=== PATIENT | female | born 1935 | race Caucasian/White ===

== ENCOUNTER 2016-09-03 00:16 | Emergency (ER) | payer MEDICARE ==
[~2016-09-03] VITALS: Ht 162.6 cm; Wt 50.9 kg
--- NOTE | 2016-09-03 00:22 | ED.REPORT ---
HPI-Head Prob / Injury Date of Service Sep 03, 2016 ED Provider: Zi Coreas MD Margarette tis a 80 year old female who presents to the ED via EMS with blunt head trauma after a mechanical ground level fall this evening. Patient states that she tripped on the carpet and fell, hitting her head on the corner of the bedroom dresser. She has a large laceration to her forehead, which was bleeding uncontrollably prior to arrival. Patient admits that she drinks white wine daily, with 2x glasses of wine earlier today. She states that she was feeling "clumsy". Patient is not on any blood thinning medications but takes 81mg aspirin daily. Patient denies loss of consciousness, neck pain, pain to her extremities, chest, or abdomen. Nursing Notes Stated Complaint: GLF Nursing Notes Reviewed: Yes Allergies: Coded Allergies: No Known Allergies (Unverified , 09/03/16) General Time Seen by Provider: 00:25 Chief Complaint Blunt head trauma, Laceration Hx Obtained From: Patient Arrived By: Ambulance Onset Occurred: Just prior to arrival Symptom Duration: Since onset Caused by: Fall from (ground) Location: : Forehead Quality: Painful Severity: Current: Moderate Severity: Maximum: Severe Recent Healthcare: No recent doctor visit, No recent hospitalization Similar Sx Previous: No Past Medical History Past Medical History none reported Past Surgical History none reported Smoking History Unknown if Ever Smoker Social History Alcohol Use: 1-3 per day Other Social History: Good social support, , Local resident Ambulatory Status Independent Review of Systems Musculoskeletal: Denies: Extremity pain, Neck pain Neurologic: Reports: Headache, Denies: Change LOC Complete sys rev & neg: except as marked. Hematologic: Reports Bleeding (associated with laceration), Reports Bruising Physical Exam Initial Vital Signs Vital Signs (First) Date Time Temp Pulse Resp B/P Pulse Ox O2 Delivery O2 Flow Rate FiO2 09/03/16 00:28 36.5 111 17 179/97 99 Room Air Initial VS: Reviewed, Vital signs abnormal Skin: Warm, Dry, No cyanosis Psychiatric: Mood/affect normal, Behavior normal, Normal thought content General/Constitutional: Awake, Alert Behavior: Negative: Appears intoxicated smells of EtOH Head / Eyes: Normocephalic, PERRL Trauma - General: Positive: Laceration (10.2cm laceration to the right forehead , extending up to the scalp. Galea is intact. ) right periorbital hematoma ENT: Atraumatic, Airway patent, Mucous membranes moist Neck: Supple, No midline vertebral tend Neurologic: Oriented X3, Speech NL, No motor deficits, No sensory deficits Respiratory / Chest: Breath sounds NL, Breath sounds = bilat, No respiratory distress, No rales, No rhonchi, No wheezing, No chest tenderness, No chest wall deformity, No crepitus Cardiovascular: Heart rate NL, Regular rhythm, Heart sounds NL Upper Extremity / MS: Non-tender, No deformity Lower Extremity / Pelvis / MS: Non-tender, No deformity, Pelvis stable Lower Ext Brief Normals: Hip R exam normal, Hip L exam normal Abdomen: Soft, Non-tender Interpretation & Diagnostics CT Head Interpretation CONCLUSION: Scalp hematoma. No acute intracranial abnormality. Radiologist: Jonathan Bruce MD 09/03/2016 - 2:43:37 AM PST Study: Head CT no contrast Interpretation / Wet Read by: Interpret - Radiologist CT C-Spine Interpretation CONCLUSION: No evidence of acute traumatic injury to the cervical spine. Enlarged nodular thyroid gland. Radiologist: Jonathan Bruce MD 09/03/2016 - 2:48:43 AM PST Study type: CT no contrast Interpretation / Wet Read by: Interpret - Radiologist Procedures Laceration Management Time: 03:20 Procedure Performed by: ED physician Consent / Setup / Site Prep: Consent from patient, Time-out performed, Hand hygiene observed, Stand sterile technique Location of Wound: right forehead Wound Length: 10 cm (10.2cm) Local Anesthesia: Lidocaine 1% Digital Block: No Wound Preparation: Other (Dermal Wound Cleanser) Debridement: None Irrigation: Copious Foreign Body Explore / Removal: Explored for foreign body Repair Skin: Nylon (5-0, #18 sutures) Closure Layers: 1 Suture Technique: Simple Post-Procedure / Complications: Antibiotic oint applied, Dressing applied, No complications, Condition improved, Tolerated procedure well, Patient stable Re-Eval/Medical Decision Med Decision/Clinical Course 80-year-old female with a mechanical ground-level fall and a large forehead laceration. CT scan of head and neck was negative. Laceration was repaired. There was no disruption of the galea or muscles of the forehead. The daily follow-up with her primary. Source of Hx: Old records Re-Evaluation/Progress #1: Time of Eval: 03:06 Patient Status: Condition improved Re-Evaluation/Progress Note: Rechecked the patient and her . They were informed that the CT scans were negative. Will repair laceration. Re-Evaluation/Progress #2: Time of Eval: 03:14 Patient Status: Condition improved Re-Evaluation/Progress Note: Laceration repaired. Patient understands and agrees with the plan to be discharged home. Discharge instructions and follow-up discussed. All questions were addressed. Return to the ED warnings given. Counseled Regarding: Diagnosis, Need for follow-up, When/why to return to ED Discharge & Departure Primary Impression: Laceration of forehead Encounter type: initial encounter Qualified Code: S01.81XA - Laceration without foreign body of other part of head, initial encounter Additional Impressions: Fall from ground level Blunt head injury Encounter type: initial encounter Qualified Code: S09.8XXA - Other specified injuries of head, initial encounter Disposition: Home All VS Reviewed: Yes Condition: Stable Patient Instructions: Laceration (ED), Minor Head Injury (ED), Suture Care (ED) Additional Instructions: Please see head injury instruction sheets for things to watch for. Return to the emergency room or contact your regular doctor if you have any problems. Cool compresses to the head. It is okay to wash your hair. Sutures out in 7- 10 days. Referrals: Sha Lorenzo (PCP) Scribe Attestation Portions of this note were transcribed by Indira Valenzuela. I, Dr. Coreas personally performed the history, physical exam and medical decision-making; I reviewed and confirmed the accuracy of the information in the transcribed note. Signed by: Susan Garcia, 09/03/2016 0427 copies to: Sha Lorenzo Howard L MD Sep 03, 2016 00:22 Indira Valenzuela Sep 03, 2016 00:35
[2016-09-03 00:28] VITALS: BP 179/97; PULSE 111; RESP 17; O2SAT 99
[2016-09-03 04:21] VITALS: BP 157/58; PULSE 107; RESP 19; O2SAT 99
[2016-09-03 05:33] VITALS: BP 109/61; PULSE 101; RESP 18; O2SAT 96
--- NOTE | 2016-09-03 11:28 | DRSVH ---
PROCEDURE: CT BRAIN WITHOUT CONTRAST ([id number]) INDICATIONS: GLF, large forehead laceration TECHNIQUE: Noncontrast 4.5 mm thick angled axial sections acquired from the foramen magnum to the vertex, with c oronal reformats. COMPARISON: None. FINDINGS: Image quality: Excellent. CSF spaces: Basal cisterns are patent. No extra-axial fluid collections. The ventricles are symmet kristine in size and shape. Brain: No intracranial bleeds or masses. There is cerebral volume loss for age, with resultant vent ricular and sulcal prominence. There are periventricular and deep white matter chronic small vessel ischemic changes. Coarse calcification noted in the left parietal lobe may be related to underlying v ascular malformation such as cavernous angioma or related to prior granulomatous disease. There is in tracranial internal carotid artery atherosclerosis. Skull and face: Calvarium and visualized facial bones appear intact, without suspicious lesions. Lar ge laceration and hematoma noted in the right frontal scalp. Sinuses: Mild mucosal thickening noted in the maxillary sinuses bilaterally and the frontal sinuses b ilaterally. Scattered opacities noted in the ethmoid air cells bilaterally. The mastoids are clear. IMPRESSION: No acute intracranial disease process. Dictated by: Georgette Nicholson MD, PhD on 09/03/2016 at 11:21 Approved by: Georgette Nicholson MD, PhD on 09/03/2016 at 11:24
--- NOTE | 2016-09-03 11:32 | DRSVH ---
PROCEDURE: CT CERVICAL SPINE WITHOUT CONTRAST ([id number]) INDICATIONS: GLF, large forehead laceration TECHNIQUE: Noncontrast 3 mm thick sections acquired from the skull base to the T4 level. Sagittal and coronal r eformats were then constructed. For radiation dose reduction, the following was used: automated exp osure control, adjustment of mA and/or kV according to patient size. COMPARISON: None. FINDINGS: Image quality: Excellent. Bones: No fractures or dislocations. Visualized superior ribs are intact. Multilevel degenerative d isc disease and facet arthropathy are noted. Soft tissues: Prevertebral soft tissues are normal in thickness. No paravertebral hematomas. No ap ical pneumothoraces. Multiple thyroid nodules noted. IMPRESSION: 1. No fracture. No acute osseous lesion. If symptoms and/or clinical suspicion for pathology persists , evaluation with MRI may be helpful for further assessment. 2. Multiple thyroid nodules. Recommend thyroid ultrasound for definitive characterization when clinic ally feasible. Dictated by: Georgette Nicholson MD, PhD on 09/03/2016 at 11:24 Approved by: Georgette Nicholson MD, PhD on 09/03/2016 at 11:31
== END 2016-09-03 05:20 | disposition home or self-care (01) ==
LOC: SED 00:16
DX: S01.81XA Laceration without foreign body of other part of head, initial encounter (principal); W01.198A Fall on same level from slipping, tripping and stumbling with subsequent striking against other object, initial encounter; Y93.89 Activity, other specified; Y92.003 Bedroom of unspecified non-institutional (private) residence as the place of occurrence of the external cause; Y99.8 Other external cause status